=== PATIENT | male | born 1955 ===

== ENCOUNTER 2017-02-02 19:47 | Emergency (ER) | payer MEDICAID, MEDICARE, OTHER ==
[2017-02-02 19:53] VITALS: BP 142/93
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
[2017-02-02 20:25] LABS: CHLORIDE,CL 100 mmol/L (101-111); SODIUM,NA 142 mmol/L (135-145)
[2017-02-02] MEDS ORDERED: Potassium Chloride 10 MEQ Tab.ER PO ONE (20:38)
== END 2017-02-02 21:36 ==
LOC: DL.ED 19:47
DX: S01.01XA Laceration without foreign body of scalp, initial encounter (principal); F10.920 Alcohol use, unspecified with intoxication, uncomplicated; Y04.8XXA Assault by other bodily force, initial encounter
CPT/HCPCS: 12002; 36415; 70450; 70486; 80053; 85025; 99283; A9270; G0480

== ENCOUNTER 2017-06-12 14:46 | Emergency (ER) | payer MEDICARE, MEDICAID, OTHER ==
[2017-06-12 14:49] VITALS: BP 138/100
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
[2017-06-12 15:28] LABS: CHLORIDE,CL 102 mmol/L (101-111); SODIUM,NA 143 mmol/L (135-145)
[2017-06-12 15:32] LABS: ACETAMINOPHEN < 10
[2017-06-12] MEDS ORDERED: Potassium Chloride 10 MEQ Tab.ER PO ONE (15:34)
[2017-06-12] MEDS ORDERED: Potassium Chloride 10 MEQ in Premix Bag 1 BAG IV ONE (15:34)
[2017-06-12] MEDS ORDERED: MVI, Adult with Vitamin K 10 ML, Folic Acid 1 MG, Thiamine 100 MG in Lactated Ringers 1... IV ONE ×4 (15:34)
== END 2017-06-12 18:22 | disposition home or self-care (01) ==
LOC: DL.ED 14:46
DX: E87.6 Hypokalemia (principal); F17.210 Nicotine dependence, cigarettes, uncomplicated; Z72.89 Other problems related to lifestyle; Z88.5 Allergy status to narcotic agent; Y90.8 Blood alcohol level of 240 mg/100 ml or more
CPT/HCPCS: 36415; 80053; 82140; 85025; 96365; 96366; 96368; 99284; A9270; G0480; J3411; J3480; J7120; 99283; J3490

== ENCOUNTER 2020-03-21 11:03 | Emergency (ER) | payer MEDICARE, MEDICAID ==
[2020-03-21] MEDS ORDERED: Activated Charcoal/Water Susp 50 GM/240 ML Tube PO ONE (11:04)
[2020-03-21] MEDS ORDERED: Succinylcholine 200 MG/10 ML MDV IV ONE ×2 (11:04)
[2020-03-21] MEDS ORDERED: propofoL 100 ML IV ONE (11:04)
[2020-03-21] MEDS ORDERED: Rocuronium 100 MG/10 ML MDV IV ONE ×2 (11:04)
[2020-03-21] MEDS ORDERED: Etomidate 2 MG/ML 20 ML SDV IVPUSH ONE ×2 (11:04)
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
[2020-03-21 11:29] LABS: ANION GAP 13.4 mEq/L (7-13); CHLORIDE,CL 96 mmol/L (98-107); SODIUM,NA 133 mmol/L (136-145)
[2020-03-21 11:33] LABS: ACETAMINOPHEN 0 ug/mL (10-30 (Therapeutic))
[2020-03-21] MEDS ORDERED: Activated Charcoal/Water Susp 50 GM/240 ML Tube ONE (11:46)
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
[2020-03-21 12:43] LABS: BASE EXCESS ARTERIAL -3 mmol/L ((-2)-(+3)); O2 DELIVERY DEVICE RESUSCITATION BAG; O2 SATURATION ARTERIAL 96 % (95-100); PCO2 ARTERIAL 45 mmHg (35-45); PO2 ARTERIAL 92 mmHg (70-100)
[2020-03-21 12:44] LABS: ALLEN TEST PERFORMED
== END 2020-03-21 13:40 ==
LOC: DL.ED 11:03
DX: S01.83XA Puncture wound without foreign body of other part of head, initial encounter (principal); T43.292A Poisoning by other antidepressants, intentional self-harm, initial encounter; M19.90 Unspecified osteoarthritis, unspecified site; Z88.5 Allergy status to narcotic agent; X74.01XA Intentional self-harm by airgun, initial encounter
CPT/HCPCS: 36415; 36600; 70450; 70486; 71045; 72125; 80053; 80305; 80307; 81003; 82803; 85025; 86850; 86900; 86901; 93005; 99285; J0330; J2704; J3490; 31500